=== PATIENT | male | born 1970 | race Hispanic/Latino ===

== ENCOUNTER 2019-11-18 02:26 | Inpatient (IN) | payer OTHER ==
[~2019-11-18] VITALS: Ht 170.2 cm; Wt 88.4 kg
[2019-11-18 02:15] VITALS: BP 121/47
[2019-11-18 06:03] LABS: ALBUMIN 3.7 g/dL (3.5-5.0); BILIRUBIN,TOTAL 0.4 mg/dL (0.2-1.0); CREATININE 0.7 mg/dL (0.5-1.5); POTASSIUM 3.6 mmol/L (3.5-5.1); TOTAL PROTEIN, SERUM 7.7 g/dL (6.0-8.3)
[2019-11-18 06:21] LABS: HEMATOCRIT 23.1 % (42-54); MEAN CORPUSCULAR HGB CONC 25.1 g/dL (32.0-36.0); MEAN CORPUSCULAR VOLUME 63.8 fL (79-99); PLATELET COUNT (AUTO) 371 K/uL (130-400); RED BLOOD CELL COUNT(AUTO) 3.62 MIL/uL (4.50-6.20); RED CELL DISTRIBUTION WIDTH 20.4 % (11.0-15.5); WHITE BLOOD COUNT (AUTO) 5.8 K/uL (4.8-10.8)
[2019-11-18] MEDS ORDERED: ONDANSETRON HCL 4 MG/2 ML VIAL IV PRN (07:45)
[2019-11-18] MEDS ORDERED: MORPHINE SULFATE 2 MG/ML 1ML SYG IV PRN (07:45)
[2019-11-18] MEDS ORDERED: LACTULOSE 20 GM/30 ML UDCUP PO PRN (07:45)
[2019-11-18] MEDS ORDERED: ACETAMINOPHEN 325 MG TAB PO PRN ×2 (07:45)
[2019-11-18 08:00] VITALS: BP 132/75
[2019-11-18] MEDS ORDERED: PANTOPRAZOLE SODIUM 80 MG in SODIUM CHLORIDE 0.9% 100 ML IV SCH (08:06)
[2019-11-18 09:00] LABS: BASOPHILS % (MANUAL) 1 % (0-2); EOSINOPHILS % (MANUAL) 1 % (1-6); LYMPHOCYTES % (MANUAL) 20 % (22-44); MONOCYTES % (MANUAL) 4 % (2-9); SEGMENTED NEUTROPHILS % 74 % (40-70)
[2019-11-18] MEDS ORDERED: PANTOPRAZOLE 40 MG/VIAL IVP SCH (09:00)
[2019-11-18 09:01] LABS: MAN.DIFF COMMENT-IMPRESSION MANUAL DIFFERENTIAL; PLATELET MORPHOLOGY COMMENT ADEQUATE
[2019-11-18 11:00] VITALS: BP 121/82
[2019-11-18 13:01] LABS: HEMATOCRIT 24.8 % (42-54)
[2019-11-18 13:57] LABS: PROTHROMBIN TIME 10.8 SEC (9.6-11.6)
[2019-11-18] MEDS: LACTULOSE 20 GM/30 ML UDCUP PO SCH ×2 (14:15→15:15)
[2019-11-18] MEDS ORDERED: LACTULOSE 20 GM/30 ML UDCUP PO SCH (15:10)
[2019-11-18 16:00] VITALS: BP 118/67
[2019-11-18] MEDS ORDERED: MAGNESIUM CITRATE 296 ML SOLUTION PO ONE (16:00)
[2019-11-18] MEDS ORDERED: PEG 3350/NA SULF,BICARB,CL/KCL 4000 ML SOLN PO ONE (17:00)
[2019-11-18] MEDS ORDERED: BISACODYL 5 MG TABLET.DR PO ONE (19:00)
[2019-11-18 20:09] VITALS: BP 147/93
[2019-11-18 23:45] VITALS: BP 141/88
[2019-11-19] VITALS (18 sets, daily range): BP systolic 118–156; BP diastolic 68–95
[2019-11-19 05:11] LABS: HEMATOCRIT 29.1 % (42-54); MEAN CORPUSCULAR HEMOGLOBIN 18.5 pg (27.0-33.0); MEAN CORPUSCULAR HGB CONC 27.8 g/dL (32.0-36.0); MEAN CORPUSCULAR VOLUME 66.4 fL (79-99); RED BLOOD CELL COUNT(AUTO) 4.38 MIL/uL (4.50-6.20); RED CELL DISTRIBUTION WIDTH 23.7 % (11.0-15.5); WHITE BLOOD COUNT (AUTO) 4.8 K/uL (4.8-10.8)
[2019-11-19 05:20] LABS: CREATININE 0.8 mg/dL (0.5-1.5); POTASSIUM 3.7 mmol/L (3.5-5.1)
[2019-11-19] MEDS ORDERED: MEPERIDINE-PF 50 MG/ML SYG ONE (08:11)
[2019-11-19] MEDS ORDERED: MIDAZOLAM HCL 1 MG/ML 2ML VIAL ONE (08:12)
[2019-11-19] MEDS ORDERED: HYDR25SU38 RC (13:16)
[2019-11-19] MEDS ORDERED: PANT40TA25 PO (13:16)
[2019-11-19] MEDS ORDERED: HYDROCORTISONE 25 MG SUPPOSITORY PR SCH (21:00)
[2019-11-20] MEDS ORDERED: PANTOPRAZOLE SODIUM 40 MG TABLET.DR PO SCH (09:00)
== END 2019-11-19 17:55 | disposition home or self-care (01) | DRG 393 ==
LOC: OBSVTOIN 02:26 → 3BH 02:26
PROVIDERS: ADMIT Internal Medicine; ATTEND Internal Medicine
PROC: 30233N1 Transfusion of Nonautologous Red Blood Cells into Peripheral Vein, Percutaneous Approach (ICD-10-PCS; principal; 2019-11-18)
PROC: 0DB98ZX Excision of Duodenum, Via Natural or Artificial Opening Endoscopic, Diagnostic (ICD-10-PCS; 2019-11-19)
PROC: 0DJD8ZZ Inspection of Lower Intestinal Tract, Via Natural or Artificial Opening Endoscopic (ICD-10-PCS; 2019-11-19)
DX: K64.8 Other hemorrhoids (principal); K27.4 Chronic or unspecified peptic ulcer, site unspecified, with hemorrhage; K29.01 Acute gastritis with bleeding; K55.21 Angiodysplasia of colon with hemorrhage; K31.82 Dieulafoy lesion (hemorrhagic) of stomach and duodenum; D62 Acute posthemorrhagic anemia; F17.200 Nicotine dependence, unspecified, uncomplicated; I10 Essential (primary) hypertension; K64.4 Residual hemorrhoidal skin tags; D50.9 Iron deficiency anemia, unspecified; K21.0 Gastro-esophageal reflux disease with esophagitis; Z87.11 Personal history of peptic ulcer disease; Q27.33 Arteriovenous malformation of digestive system vessel
CPT/HCPCS: 36415; 36430; 43239; 45378; 80048; 80053; 82270; 83540; 83550; 85014; 85018; 85025; 85027; 85610; 86850; 86900; 86901; 86922; 93970; 99152; 99153; A4606; C9113; G0378; J2175; J2250; P9016